=== PATIENT | male | born 1990 | race Two or more races ===

== ENCOUNTER 2017-07-22 12:57 | Emergency (ER) | payer SELFPAY ==
[~2017-07-22] VITALS: Ht 170.2 cm; Wt 72.6 kg
[2017-07-22 13:03] VITALS: BP 137/102
== END 2017-07-22 13:19 | disposition home or self-care (01) ==
LOC: ER 13:00
DX: S83.8X2A Sprain of other specified parts of left knee, initial encounter (principal); W18.39XA Other fall on same level, initial encounter; Y93.67 Activity, basketball; Y92.89 Other specified places as the place of occurrence of the external cause; Y99.8 Other external cause status
CPT/HCPCS: 99281; A4606; Z7610; Z7502

== ENCOUNTER 2017-09-01 15:27 | Emergency (ER) | payer SELFPAY ==
[~2017-09-01] VITALS: Ht 170.2 cm; Wt 77.1 kg
--- NOTE | 2017-09-01 15:30 | NUR ---
PT CAME IN FOR PALPITATIONS AFTER TAKING PROTEIN SHAKE. SEEN BY MD FOR EVSHALINI. NOTED TACHY. REPORTS LACK OF SLEEP, STRESS. SAFETY AND COMFORT MEASURES PROVIDED. WILL MONITOR.
--- NOTE | 2017-09-01 15:50 | NUR ---
IV ACCESS STARTED. BLOOD DRAWN FOR LABS.
[2017-09-01 15:55] LABS: BASOPHILS # (AUTO) 0.1 /CMM (0.0-0.2); BASOPHILS % (AUTO) 0.6 % (0.0-2.0); HEMATOCRIT 47 % (39-51); HEMOGLOBIN 16.3 g/dL (13.5-17.5); LYMPHOCYTES # (AUTO) 2.3 /CMM (0.8-4.8); LYMPHOCYTES % (AUTO) 19.1 % (20.0-44.0); MEAN CORPUSCULAR HGB CONC 34 g/dl (31.0-36.0); MEAN CORPUSCULAR VOLUME 79 fL (80-96); MONOCYTES # (AUTO) 0.8 /CMM (0.1-1.30); MONOCYTES % (AUTO) 6.3 % (2.0-12.0); NEUTROPHILS # (AUTO) 8.8 /CMM (1.8-8.9); PLATELET COUNT (AUTO) 272 /CMM (150-450); RDW COEFFICIENT OF VARIATION 11.9 (11.5-15.0); RED BLOOD CELL COUNT(AUTO) 6.02 MIL/uL (4.5-6.0); WHITE BLOOD COUNT (AUTO) 12.1 K/uL (4.3-11.0)
[2017-09-01 16:05] LABS: CALCIUM, SERUM 9.3 mg/dL (8.5-10.1); CARBON DIOXIDE 25 mmol/L (21-32); CHLORIDE 99 mmol/L (98-107); CREATININE 1.1 mg/dL (0.6-1.3); GLUCOSE 125 mg/dL (74-106); POTASSIUM 3.2 mmol/L (3.5-5.1); SODIUM SERUM 136 mmol/L (136-145); UREA NITROGEN, BLOOD 13 mg/dL (7-18)
--- NOTE | 2017-09-01 16:05 | NUR ---
URINE SAMPLE OBTAINED, SENT.
[2017-09-01 16:08] LABS: INR 0.89 (0.85-1.15)
[2017-09-01 16:14] LABS: TROPONIN I < 0.017 ng/mL (0.00-0.056)
--- NOTE | 2017-09-01 17:00 | NUR ---
IV removed. Catheter intact and site benign. Pressure and 4x4 applied to site. No bleeding noted.
[2017-09-01] MEDS ORDERED: LORAZEPAM 1 MG TABLET ONE (17:12)
--- NOTE | 2017-09-01 17:22 | NUR ---
Patient discharged to home in stable condition. Written and verbal after care instructions given. Patient verbalizes understanding of instruction.
[2017-09-01 17:23] VITALS: BP 132/69
[2017-09-01] MEDS ORDERED: LORAZEPAM 1 MG TABLET PO ONE (17:30)
== END 2017-09-01 17:23 | disposition home or self-care (01) ==
LOC: ER 15:28
DX: R00.2 Palpitations (principal); F41.9 Anxiety disorder, unspecified
CPT/HCPCS: 36415; 71045-TC; 80048-TC; 80305; 84443-TC; 84484-TC; 85025-TC; 85730-TC; A4606; Z7610